=== PATIENT | female | born 1945 | race Caucasian/White ===

== ENCOUNTER 2016-06-12 08:46 | Outpatient (CLI) | payer MEDICARE, OTHER | END 2016-06-12 08:47 | disposition home or self-care (01) | DX: Z12.31 Encounter for screening mammogram for malignant neoplasm of breast (principal); Z80.3 Family history of malignant neoplasm of breast ==

== ENCOUNTER 2016-06-12 08:49 | Outpatient (CLI) | payer MEDICARE, OTHER | END 2016-06-12 08:50 | disposition home or self-care (01) | DX: Z13.820 Encounter for screening for osteoporosis (principal); Z78.0 Asymptomatic menopausal state; M81.0 Age-related osteoporosis without current pathological fracture ==

== ENCOUNTER 2016-09-19 12:57 | Emergency (ER) | payer MEDICARE, OTHER ==
[2016-09-19] MEDS ORDERED: MECLIZINE 12.5 MG TABLET PO ONE (13:18)
[2016-09-19] MEDS ORDERED: ONDANSETRON ODT 4 MG TABLET ONE (13:18)
--- NOTE | 2016-09-19 13:19 | ED Physician Documentation ---
History of Present Illness - Stated complaint Stated Complaint: DIZZINESS,L EAR PX,DIFF HEARING - Chief complaint Chief Complaint: General - History obtained from History obtained from: Patient, Family - History of Present Illness Timing: Today Pain level max: 2 Pain level now: 1 Improved by: remaining still Worsened by: moving - Additonal information Additional information: Patient is a 71-year-old female who presents to the emergency department with left-sided ear "clogging" for the past several months. Today she feels like the room is spinning around her and she is having nausea. Denies any focal neurological deficits. Denies any headache. Symptoms are better with rest. Worse with movement. Review of Systems Ten Systems: 10 systems reviewed and negative Constitutional: denies: Fever, Chills Ears: reports: Ear pain Nose: denies: Rhinorrhea / runny nose, Congestion Throat: denies: Sore throat Respiratory: denies: Cough GI: reports: Nausea. 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 - Present Medications Home Medications: Ambulatory Orders Medication Instructions Recorded Confirmed Hydrochlorothiazide 12.5 mg PO DAILY 11/28/12 05/07/14 Losartan [Cozaar] 25 mg PO DAILY 11/28/12 05/07/14 Omeprazole [PriLOSEC] 20 mg PO DAILY 11/28/12 05/07/14 Oxaprozin [Daypro] 800 mg PO DAILY 11/28/12 05/07/14 Aspirin/Calcium Carbonate/Mag 81 mg PO DAILY 01/19/14 05/07/14 [Aspirin Buffered 325 mg Tab] Fenofibrate 160 mg PO DAILY 01/19/14 05/07/14 Lidocaine Patch 5% [Lidoderm Patch] 1 each TOP DAILY PRN #10 patch 04/16/15 oxyCODONE [Roxicodone] 5 mg PO Q6H #20 tablet 04/16/15 Meclizine [Antivert] 12.5 - 25 mg PO Q6H PRN #20 tablet 09/19/16 Ondansetron Odt [Zofran] 4 mg TL Q6H PRN #10 tablet 09/19/16 - Allergies Allergies/Adverse Reactions: Allergies Allergy/AdvReac Type Severity Reaction Status Date / Time No Known Drug Allergies Allergy Verified 09/19/16 13:12 - Social History Does the pt smoke?: No Smoking Status: Former smoker Does the pt drink ETOH?: Yes Does the pt have substance abuse?: No PD ED PE NORMAL - Vitals Vital signs reviewed: Yes - General General: Alert and oriented X 3, No acute distress, Well developed/nourished - HEENT HEENT: Atraumatic, PERRL, EOMI, Ears normal, Moist mucous membranes, Pharynx benign - Neck Neck: Supple, no meningeal sign, No bony TTP - Cardiac Cardiac: RRR, No murmur - Respiratory Respiratory: Clear bilaterally - Abdomen Abdomen: Normal bowel sounds, Soft, Non tender, Non distended - Derm Derm: Warm and dry, No rash - Extremities Extremities: No deformity - Neuro Neuro: Alert and oriented X 3, patient relations coordinator 2-12 intact, No motor deficit, No sensory deficit, Normal speech, Other (+hallpike to the L. NIHSS 0) GCS Score: 15 - Psych Psych: Normal mood, Normal affect Results - Vitals Vitals: Vital Signs - 24 hr 09/19/16 09/19/16 13:00 14:34 Temperature 36.6 C 36.8 C Heart Rate 79 69 Respiratory 16 17 Rate Blood Pressure 187/68 H 154/69 H O2 Saturation 98 98 Oxygen O2 Source Room air PD MEDICAL DECISION MAKING - ED course Complexity details: reviewed results, re-evaluated patient, considered differential, d/w patient, d/w family ED course: Patient is a 71-year-old female who presents to the emergency department with vertigo. Appears to be BPPV. Positive Hallpike to the left. She was given Zofran and meclizine. Half somersault maneuver was then performed and this nearly resolved her vertigo. She is ambulating well and would like to go home at this time. No evidence of stroke. No evidence of otitis media. Patient and family counseled regarding signs and symptoms for which I believe and urgent re- evaluation would be necessary. Patient with good understanding of and agreement to plan and is comfortable going home at this time This document was made in part using voice recognition software. While efforts are made to proofread this document, sound alike and grammatical errors may occur. Departure - Departure Disposition: 01 Home, Self Care Clinical Impression: Vertigo Condition: Good Instructions: ED Vertigo Unspecified Follow-Up: EBER GREGORIO [Primary Care Provider] - Within 1 week Prescriptions: Meclizine [Antivert] 12.5 - 25 mg PO Q6H PRN #20 tablet PRN Reason: dizziness Ondansetron Odt [Zofran] 4 mg TL Q6H PRN #10 tablet PRN Reason: Nausea / Vomiting Comments: Return if you worsen. You can also try the half somersault maneuver at home to see if this helps you. This should improve over the next 2-3 days. Your blood pressure was elevated today on check in to the emergency department. This does not mean that you have hypertension, it is a common phenomenon to check into the emergency department and have elevated blood pressure. I recommend that you see your primary care physician within the week to have it rechecked when you're feeling better. Discharge Date/Time: 09/19/16 14:36
[2016-09-19] MEDS: ONDANSETRON ODT 4 MG TABLET TL STA (13:20)
[2016-09-19] MEDS: MECLIZINE 12.5 MG TABLET PO STA (13:20)
[2016-09-19 14:36] VITALS: BP 154/69
== END 2016-09-19 14:36 | disposition home or self-care (01) ==
LOC: ED 12:57
DX: R42 Dizziness and giddiness (principal); I10 Essential (primary) hypertension; E78.00 Pure hypercholesterolemia, unspecified; K21.9 Gastro-esophageal reflux disease without esophagitis; Z87.11 Personal history of peptic ulcer disease; M19.90 Unspecified osteoarthritis, unspecified site; Z79.82 Long term (current) use of aspirin; Z87.891 Personal history of nicotine dependence
CPT/HCPCS: 99283; 99284

== ENCOUNTER 2017-05-06 13:34 | Outpatient (CLI) | payer MEDICARE, OTHER | END 2017-05-06 13:35 | disposition home or self-care (01) | LOC: SC 13:34 | PROVIDERS: ATTEND Nurse Practitioner Family | DX: G47.33 Obstructive sleep apnea (adult) (pediatric) (principal) | CPT/HCPCS: 99213; G0463; 99212 ==

== ENCOUNTER 2017-06-14 08:33 | Outpatient (CLI) | payer MEDICARE, OTHER ==
--- NOTE | 2017-06-16 09:50 | Mammography Report ---
DATE OF SERVICE: 06/14/2017 DIGITAL SCREENING MAMMOGRAM: 06/14/2017 CLINICAL INDICATION: A 72-year-old with family history of breast cancer, for screening. COMPARISON: 06/2016, 04/2014, 04/2013, 03/2012, 03/2011, 02/2010. TECHNIQUE: Routine CC and MLO projections were obtained of the breasts. FINDINGS: The breasts again demonstrate scattered fibroglandular densities bilaterally. Coarse and punctate, typically benign calcifications are present. No suspicious masses, clustered microcalcifications, or regions of architectural distortion are identified. IMPRESSION: BENIGN FINDINGS. RECOMMENDATION: ROUTINE ANNUAL SCREENING UNLESS OTHERWISE CLINICALLY INDICATED. BIRADS CATEGORY 2-BENIGN FINDINGS. STANDARD QUALIFYING STATEMENTS: 1. This examination was reviewed with the aid of Computer-Aided Detection (CAD). 2. A negative or benign imaging report should not delay biopsy if clinically suspicious findings are present. Consider surgical consultation if warranted. More than 5% of cancers are not identified by imaging. 3. Dense breasts may obscure an underlying neoplasm. TD: 06/16/2017 10:49
== END 2017-06-14 08:34 | disposition home or self-care (01) ==
LOC: DI 08:33
PROVIDERS: ATTEND Specialist
DX: Z12.31 Encounter for screening mammogram for malignant neoplasm of breast (principal); Z80.3 Family history of malignant neoplasm of breast
CPT/HCPCS: 77067

== ENCOUNTER 2017-09-13 07:21 | Outpatient (CLI) | payer MEDICARE, OTHER ==
--- NOTE | 2017-09-13 11:40 | Ultrasound Report ---
COMPLETE ABDOMINAL ULTRASOUND: 09/13/2017 CLINICAL INDICATION: Increasing reflux, increasing pain. TECHNIQUE: Real-time scanning was performed with career representative static images obtained. FINDINGS: The liver measures 14.5 cm. Hepatic echogenicity appears increased, compatible with fatty infiltration. No focal parenchymal lesion or intrahepatic biliary dilatation is present. The common bile duct measures 4 mm. The gallbladder is normal, as is the visualized pancreas. The spleen measures 10.3 cm, and demonstrates normal echotexture. The kidneys are normal, with the right measuring 11.4 cm and the left measuring 11.7 cm. The abdominal aorta is normal in caliber throughout. The inferior vena cava is unremarkable. No free fluid is present. IMPRESSION: ECHOGENIC LIVER, LIKELY REPRESENTING FATTY INFILTRATION. OTHERWISE, NORMAL ABDOMINAL ULTRASOUND. TD: 09/13/2017 11:39
== END 2017-09-13 07:22 | disposition home or self-care (01) ==
LOC: DI 07:21
PROVIDERS: ATTEND Registered Nurse
DX: K21.9 Gastro-esophageal reflux disease without esophagitis (principal); R10.12 Left upper quadrant pain
CPT/HCPCS: 76700

== ENCOUNTER 2017-09-18 08:11 | Emergency (ER) | payer MEDICARE, OTHER ==
[2017-09-18 08:18] VITALS: BP 172/77
--- NOTE | 2017-09-18 08:37 | ED Physician Documentation ---
PD HPI UPPER EXT INJURY - Stated complaint Stated Complaint: L WRIST INJ/GLF - Chief complaint Chief Complaint: Trauma Ext - History obtained from History obtained from: Patient, Family - History of Present Illness Location: Left, Wrist Type of injury: Fall (she was on chair as stepstool and fell, landing onto left wrist. Still hurts with ROM. Denies other injury.) Where injury occurred: Home Timing - onset: How many days ago (2) Timing - duration: Days (2) Timing - details: Abrupt onset, Still present Improved by: Rest Worsened by: Moving, Palpating Associated symptoms: Swelling. No: Weakness, Numbness Contributing factors: No: Anticoagulated, Prior ortho surgery Similar symptoms before: Has not had sx before Recently seen: Not recently seen Review of Systems Cardiac: denies: Chest pain / pressure GI: denies: Abdominal Pain Skin: denies: Abrasion (s), Laceration (s) Neurologic: denies: Focal weakness, Numbness, Confused, Altered mental status, Headache, Head injury PD PAST MEDICAL HISTORY - Past Medical History Cardiovascular: Hypertension, High cholesterol Respiratory: None Neuro: None Endocrine/Autoimmune: None GI: GERD, Ulcers : None HEENT: None Psych: None Musculoskeletal: Osteoarthritis, Osteoporosis, Chronic back pain Derm: None - Past Surgical History General: EGD, Appendectomy, 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 - Present Medications Home Medications: Ambulatory Orders Medication Instructions Recorded Confirmed Hydrochlorothiazide 12.5 mg PO DAILY 11/28/12 09/18/17 Losartan [Cozaar] 25 mg PO DAILY 11/28/12 09/18/17 Omeprazole [PriLOSEC] 20 mg PO DAILY 11/28/12 05/07/14 Oxaprozin [Daypro] 800 mg PO DAILY 11/28/12 05/07/14 Aspirin/Calcium Carbonate/Mag 81 mg PO DAILY 01/19/14 09/18/17 [Aspirin Buffered 325 mg Tab] Fenofibrate 160 mg PO DAILY 01/19/14 09/18/17 Lidocaine Patch 5% [Lidoderm Patch] 1 each TOP DAILY PRN #10 patch 04/16/15 oxyCODONE [Roxicodone] 5 mg PO Q6H #20 tablet 04/16/15 Meclizine [Antivert] 12.5 - 25 mg PO Q6H PRN #20 tablet 09/19/16 Ondansetron Odt [Zofran] 4 mg TL Q6H PRN #10 tablet 09/19/16 - Allergies Allergies/Adverse Reactions: Allergies Allergy/AdvReac Type Severity Reaction Status Date / Time No Known Drug Allergies Allergy Verified 09/19/16 13:12 - Social History Does the pt smoke?: No Smoking Status: Never smoker Does the pt drink ETOH?: Yes Does the pt have substance abuse?: No - Immunizations Immunizations are current?: Yes - POLST Patient has POLST: No PD ED PE NORMAL - Vitals Vital signs reviewed: Yes - General General: Alert and oriented X 3, No acute distress, Well developed/nourished - Derm Derm: Normal color, Warm and dry - Extremities Extremities: Other (left wrist tender dorsal aspect generally. Not tender in navicular area. Mild swelling. No deformity. Good pulses and color. ) - Neuro Neuro: No motor deficit, No sensory deficit Results - Vitals Vitals: Oxygen O2 Source Room air PD MEDICAL DECISION MAKING - ED course Complexity details: reviewed results, considered differential, d/w patient Departure - Departure Disposition: 01 Home, Self Care Clinical Impression: Accidental fall from chair Qualifiers: Encounter type: initial encounter Qualified Code(s): W07.XXXA - Fall from chair , initial encounter Left wrist sprain Qualifiers: Encounter type: initial encounter Qualified Code(s): S63.502A - Unspecified sprain of left wrist, initial encounter Condition: Stable Record reviewed to determine appropriate education?: Yes Instructions: ED Sprain Wrist Follow-Up: Hafsa Huang ARNP [Primary Care Provider] - [facility] [Provider Group] Comments: Continue usual medications. Use a wrist splint periodically through the day for comfort with activity. Consider sleeping with it at night as well. Have it off during the day sometimes in order to have good range of motion in not get stiff wrist. I do not see anything fractured on x-ray. Use Tylenol if needed for pains. Recheck if not better in the next week or so. Discharge Date/Time: 09/18/17 09:03
--- NOTE | 2017-09-18 08:59 | XRAY Preliminary Report ---
Exam: XR WRIST 3 VIEW LT IMPRESSION: No acute osseous abnormality with degenerative changes as above. [facility] SITE ID: [id number]
--- NOTE | 2017-09-18 09:05 | XRAY Report ---
EXAM: LEFT WRIST RADIOGRAPHY EXAM DATE: 09/18/2017 08:39 AM. CLINICAL HISTORY: Fall. COMPARISON: Right wrist radiographs 08/16/2010. TECHNIQUE: 3 views. FINDINGS: Bones: No acute displaced fracture. No suspicious focal osseous lesion. There is diffuse osseous raj neralization. Joints: No subluxation/dislocation. Osteophytic spurring present at the distal radial ulnar joint. At least moderate degenerative change is present at the first CMC joint. Soft Tissues: Unremarkable. IMPRESSION: No acute osseous abnormality with degenerative changes as above. [facility] Referring Provider Line: [phone] SITE ID: [id number]
== END 2017-09-18 09:03 | disposition home or self-care (01) ==
LOC: ED 08:11
DX: S63.502A Unspecified sprain of left wrist, initial encounter (principal); W07.XXXA Fall from chair, initial encounter; I10 Essential (primary) hypertension; E78.00 Pure hypercholesterolemia, unspecified; Z79.82 Long term (current) use of aspirin
CPT/HCPCS: 99282; 99283

== ENCOUNTER 2018-07-19 08:25 | Outpatient (CLI) | payer MEDICARE, OTHER ==
--- NOTE | 2018-07-19 14:36 | Mammography Report ---
Reason: ENCOUNTER FOR SCREENING MAMMOGRAM FOR MALIGNANT NE Procedure Date: 07/19/2018 Accession Number: [id number] / [id number] Procedure: TENZIN - Screening Mammo w/Ta CPT Code: FULL RESULT: EXAM: Screening Mammo w/Ta DATE: 07/19/2018 9:08 AM CLINICAL HISTORY: Routine screening TECHNIQUE: Bilateral CC and MLO views were obtained. COMPARISON: 06/14/2017, 06/12/2016 06/25/2015 and 04/30/2014 FINDINGS: There are scattered fibroglandular densities. There has been no significant interval change. No suspicious masses, clustered microcalcifications, or regions of architectural distortion are identified. IMPRESSION: Benign findings RECOMMENDATION: Routine annual screening unless otherwise clinically indicated. BIRADS CATEGORY 2: Benign findings STANDARD QUALIFYING STATEMENTS: 1. This examination was not reviewed with the aid of Computer-Aided Detection (CAD). 2. A negative or benign imaging report should not delay biopsy if clinically suspicious findings are present. Consider surgical consultation if warrented. More than 5% of cancers are not identified by imaging. 3. Dense breasts may obscure an underlying neoplasm. 4. This examination was reviewed with the aid of 3D breast imaging (tomosynthesis).
== END 2018-07-19 08:26 | disposition home or self-care (01) ==
LOC: DI 08:25
PROVIDERS: ATTEND Registered Nurse
DX: Z12.31 Encounter for screening mammogram for malignant neoplasm of breast (principal)
CPT/HCPCS: 77063; 77067

== ENCOUNTER 2018-07-19 08:26 | Outpatient (CLI) | payer MEDICARE, OTHER ==
--- NOTE | 2018-07-19 11:30 | DEXA Report ---
Reason: AGE RELATED OSTEOPOROSIS WITHOUT CURRETN PATHOLOGI Procedure Date: 07/19/2018 Accession Number: [id number] / [id number] Procedure: DEX - Dexa Spine and/or Hip CPT Code: FULL RESULT: EXAM: Dexa Spine and/or Hip DATE: 07/19/2018 9:42 AM CLINICAL HISTORY: AGE RELATED OSTEOPOROSIS WITHOUT CURRENT PATHOLOGY . HISTORY OF BONIVA AND FOSAMAX USE. TECHNIQUE: Dual energy x-ray absorptiometry (DXA) was performed on a Pointworthy System. Regions measured are the AP Spine, femoral neck, and if needed forearm. COMPARISON: 06/12/2016 In accordance with the International Society for Clinical Densitometry (ISCD) guidelines, data from previous exams may be reanalyzed using current recommendations and techniques. This is done to allow a more accurate basis for comparison with the current study. FINDINGS: The data for the lumbar spine is as follows: BMD (g/cm/cm) T-SCORE Z-SCORE REGION L1 0.834 -2.5 -1.9 L2 0.898 -2.5 -2.0 L3 0.950 -2.1 -1.5 L4 0.981 -1.8 -1.3 TOTAL 0.918 -2.2 -1.6 NOTE: All evaluable vertebrae are used for classification The data for the hip is as follows: BMD (g/cm/cm) T-SCORE Z-SCORE REGION Neck 0.763 -2.0 -0.9 TOTAL 0.773 -1.9 -1.1 NOTE: The femoral neck or total proximal femur, whichever is lowest, is used for classification. DXA RESULTS SUMMARY: Spine SCAN DATE [age]GE BMD CHANGE VS CHANGE VS PREVIOUS PREVIOUS % [birth year]18[birth year]2019 [age] 0[age]944 0.144 18 06[age]12/2016 [age] 0[age]8 * Denotes significant change at the 95% confidence level. Denotes dissimilar scan types or analysis methods. DXA RESULTS SUMMARY: Hip SCAN DATE [age]GE BMD CHANGE VS CHANGE VS PREVIOUS PREVIOUS % [birth year]19[birth year]2018 [age] 0.773 -0.027 -3.4 [birth year]12[birth year]2016 [age] 0.8 * Denotes significant change at the 95% confidence level. Denotes dissimilar scan types or analysis methods. IMPRESSION: THE WHO CLASSIFICATION BASED ON THE INTERNATIONAL REFERENCE STANDARD IS OSTEOPENIA. THE FRACTURE RISK IS INCREASED. There has been a statistically significant 18% increase in bone mineral density L2-L4 since the prior examination.. RECOMMENDATION: Patients with diagnosis of osteoporosis or osteopenia should have regular bone mineral density assessment. For those eligible for Medicare, routine testing is allowed once every 2 years. Testing frequency can be increased for patients who have rapidly progressing disease or for those who are receiving medical therapy to restore bone mass. COMMENT: World Health Organization (WHO) definitions for osteoporosis and osteopenia: NORMAL BMD: T-score at -1.0 or higher, fracture risk is low OSTEOPENIA BMD: T-score between -1.0 and -2.5, fracture risk is increased. OSTEOPOROSIS BMD: T-score at -2.5 or lower, fracture risk is high. National Osteoporosis Foundation recommends: 1. Obtain adequate dietary calcium (at least 1200 mg per day) and vitamin D (400-800 international units per day). 2. Participate, as appropriate, in regular weightbearing and muscle-strengthening exercise. 3. Avoid tobacco use and reduce alcohol and caffeine intake. 4. For more detailed information see the website at www.NOF.org.
== END 2018-07-19 08:27 | disposition home or self-care (01) ==
LOC: DI 08:26
PROVIDERS: ATTEND Registered Nurse
DX: M85.89 Other specified disorders of bone density and structure, multiple sites (principal); Z78.0 Asymptomatic menopausal state
CPT/HCPCS: 77080

== ENCOUNTER 2018-08-26 14:37 | Outpatient (CLI) | payer MEDICARE, OTHER ==
--- NOTE | 2018-08-26 15:52 | XRAY Report ---
Reason: PAIN IN RIGHT KNEE,LOW BACK PAIN Procedure Date: 08/26/2018 Accession Number: [id number] / [id number] Procedure: XR - Lumbar Spine 2 View CPT Code: FULL RESULT: EXAM: LUMBOSACRAL SPINE RADIOGRAPHY EXAM DATE: 08/26/2018 02:42 PM. CLINICAL HISTORY: Pain in right knee,low back pain. COMPARISONS: None. TECHNIQUE: 3 views. FINDINGS: Alignment: 7 mm of grade 1 anterolisthesis of L4 on L5. 10 mm of grade 1-2 anterolisthesis of L5 on S1. Bones: Five lwd-rwy-cjelvpb lumbar vertebral bodies are present. No fractures or bone lesions. Disks: Mild disk space narrowing at L5-S1. Facets: Mild degenerative facet arthrosis at L4-L5 and L5-S1. Sacroiliac Joints: Unremarkable. Soft Tissues: Normal. The visualized bowel gas pattern is normal. IMPRESSION: Degenerative appearing anterolisthesis at L4-L5 and L5-S1 as described. No appreciable acute fracture. [facility]
--- NOTE | 2018-08-26 15:53 | XRAY Report ---
Reason: PAIN IN RIGHT KNEE,LOW BACK PAIN Procedure Date: 08/26/2018 Accession Number: [id number] / [id number] Procedure: XR - Knee 3 View RT CPT Code: FULL RESULT: EXAM: RIGHT KNEE RADIOGRAPHY EXAM DATE: 08/26/2018 02:42 PM. CLINICAL HISTORY: Pain in right knee, low back pain. COMPARISON: None. TECHNIQUE: 3 views. FINDINGS: Bones: Normal. No fractures or bone lesions. Joints: Minimal medial osteophyte medial femoral condyle. Minimal osteophyte formation of the lateral patella. No significant effusion appreciated. Soft Tissues: Normal. No soft tissue swelling. IMPRESSION: Normal knee radiography for age. [facility]
== END 2018-08-26 14:38 | disposition home or self-care (01) ==
LOC: DI 14:37
PROVIDERS: ATTEND Nurse Practitioner Family
DX: M25.561 Pain in right knee (principal); M51.37 Other intervertebral disc degeneration, lumbosacral region; M47.9 Spondylosis, unspecified; M43.16 Spondylolisthesis, lumbar region; M43.17 Spondylolisthesis, lumbosacral region
CPT/HCPCS: 72100

== ENCOUNTER 2018-12-05 10:09 | Outpatient (CLI) | payer MEDICARE, OTHER ==
--- NOTE | 2018-12-05 13:34 | XRAY Report ---
Reason: ENCOUNTER FOR OTHER PREPROCEDURAL EXAMINATION Procedure Date: 12/05/2018 Accession Number: [id number] / [id number] Procedure: XR - Chest 2 View X-Ray CPT Code: 82777 FULL RESULT: EXAM: CHEST RADIOGRAPHY EXAM DATE: 12/05/2018 10:20 AM. CLINICAL HISTORY: Preop screening ENCOUNTER FOR OTHER PREPROCEDURAL EXAMINATION. COMPARISON: 09/12/2014 9:04 AM. TECHNIQUE: 2 views. FINDINGS: Lungs/Pleura: No focal opacities evident. No pleural effusion. No pneumothorax. Normal volumes. Mediastinum: Heart and mediastinal contours are unremarkable. Other: None. IMPRESSION: No active cardiopulmonary disease [facility]
== END 2018-12-05 10:10 | disposition home or self-care (01) ==
LOC: DI 10:09
PROVIDERS: ATTEND Registered Nurse
DX: Z01.818 Encounter for other preprocedural examination (principal); G47.33 Obstructive sleep apnea (adult) (pediatric); M48.062 Spinal stenosis, lumbar region with neurogenic claudication
CPT/HCPCS: 71046

== ENCOUNTER 2019-01-26 08:22 | Outpatient (CLI) | payer MEDICARE, OTHER ==
[2019-01-26 08:44] LABS: CALCIUM 9.4 mg/dL (8.5-10.3); CREATININE 0.9 mg/dL (0.4-1.0)
[2019-01-26 08:48] LABS: MEAN CORPUSCULAR HEMOGLOBIN 32.9 pg (27.0-31.0); MEAN CORPUSCULAR HGB CONC 33.9 g/dL (32.0-36.0); MEAN CORPUSCULAR VOLUME 96.9 fL (81.0-99.0); MEAN PLATELET VOLUME 9.5 fL (7.9-10.8); RED BLOOD COUNT 4.26 10^6/uL (4.20-5.40); RED CELL DISTRIBUTION WIDTH 12.2 % (12.0-15.0); WHITE BLOOD COUNT 3.6 x10^3/uL (4.8-10.8)
== END 2019-01-26 08:23 | disposition home or self-care (01) ==
LOC: LAB 08:22
PROVIDERS: ATTEND Orthopaedic Surgery Orthopaedic Surgery of the Spine
DX: Z01.818 Encounter for other preprocedural examination (principal)
CPT/HCPCS: 36415; 80048; 85027

== ENCOUNTER 2019-10-18 12:21 | Outpatient (CLI) | payer MEDICARE, OTHER ==
--- NOTE | 2019-10-18 10:54 | SLEEP CARE CONSULTATION ---
Information from patient questionnaire entered by Bessy Almodovar. I have reviewed and concur with the information entered by Bessy Almodovar. This document represents the service I personally performed and the decisions made by me, Madison Fish, RN, MSN, SHUTTLE FIXER. History of Present Illness Service Date and Time: 10/18/2019 1030 Previous diagnosis: Mild, Obstructive Sleep Apnea-Hypopnea Syndrome AHI: 11.9 Reason for follow up: annual (Last seen 2018) Equipment type: [facility] Mask style: Nasal pillows Backup mask available: Yes (old mask ) Last cushion change: last week / changes every 2 weeks CPAP Compliance Data - Data Reviewed with Patient Average duration of nightly device use: 9.95 Compliance rate %: 99.4 (180 days) Current pressure setting (cmH2O): 10-15 Humidity settin Heated hose settin Average residual AHI: 1.4 Average large leak: 1 min 14 sec Subjective Patient concerns: denies: aerophagia, mask discomfort, air blowing in eyes, mask leak noise, condensation in mask/hose, nasal congestion, dry mouth, nose, throat, epistaxis, other (no other concerns ) Observed to snore while using device: No Current pressure setting perceived as: comfortable On therapy, patient: reports: sleeping better, awakening more refreshed, being more awake and alert during the day, more rested overall. denies: drowsiness while driving Initial [place] Sleepiness Scale score: 17 Physical Exam Height: 5 ft 3 in Weight: 220 lb (trying to lose) Body Mass Index: 38.9 BMI Classification: Obese Impression and Plan 1. Obstructive Sleep Apnea-Hypopnea Syndrome, mild, with good treatment compliance and goo apnea control. On CPAP therapy, the patient has better sleep quality and is more rested overall. She is very pleased with her benefit from CPAP treatment. I inquired about the extra time spent using CPAP and she states she puts on CPAP while resting in bed watchng TV to relax an hour before she sleeps and feels she is getting about 8.5 hours of sleep a night. I discussed that most people require 7-9 hours of sleep for optimal mental and physical health and if she requires more, she needs to follow up with her PCP for further evaluation. She is trying to lose weight but unable to achieve. Thus I reviewed some weight loss principles. Currently patients BMI is 38.9 obesity class . Obesity increases the risk of apnea, CPAP pressure requirements and overall health risks especially cardiovascular and diabetes. Weight loss can be done with reducing portion size, reducing refined foods and balancing content with vegetables, fruit and protein. In addition tracking food intake will allow awareness of how to modify diet to achieve weight loss goals. Also eating more slowly will allow more awareness of food intake and enjoyment of food while assisting patient to modify intake at each meal. A diet consultation can be helpful in achieving optimal weight loss goals. Patient encouraged to discuss their weight loss goals with their PCP and consider a referral to a county bailiff. The patient's CPAP pressure range should accommodate some weight loss. She is comfortable with current pressure and will call me when she starts losing weight to adjust further. Symptoms to report for additional pressure adjustment discussed. Patient's apnea severity and rationale for treatment to reduce apnea, improve sleep quality and reduce cardiovascular and cerebrovascular events was reviewed. I also reviewed the benefit of consistent device use of CPAP for individuals with hypertension, cardiac disease, cerebrovascular disease, arrhythmia, diabetes. * Continue auto CPAP pressure at 10-15 cmH2O * Notify me if snoring with mask or feeling that the pressure is too much or too little * Attempt to lose weight * Consider diet consultation and discuss with PCP. * Call this office if any problems using CPAP * Return for follow up in 1 year , or sooner if concerns arise Visit Type: Telehealth Phone Patient Location: Home Location of Provider: Home Patient agrees and consents to this telehealth visit type: Yes Patient agrees to have their insurance billed: Yes Time Spent with Patient (minutes): 10 Provider Statement: I spent 100% of the Telehealth Phone Call with the patient with greater than 50% spent counseling the patient and coordination of care.
== END 2019-10-18 12:22 | disposition home or self-care (01) ==
LOC: SC 12:21
PROVIDERS: ATTEND Nurse Practitioner Family
DX: G47.33 Obstructive sleep apnea (adult) (pediatric) (principal); E66.9 Obesity, unspecified; Z68.38 Body mass index [BMI] 38.0-38.9, adult

== ENCOUNTER 2020-02-01 11:09 | Day surgery (SDC) | payer MEDICARE, OTHER ==
[2020-02-01] MEDS ORDERED: LACTATED RINGERS 1,000 ML IV ONE ×2 (11:13→14:18)
[2020-02-01] MEDS ORDERED: fentaNYL 250 MCG/5 ML VIAL IVP ONE (13:38)
[2020-02-01] MEDS ORDERED: MIDAZOLAM 2 MG/2 ML VIAL IVP ONE (13:38)
[2020-02-01 14:34] VITALS: BP 131/75
== END 2020-02-01 11:10 | disposition home or self-care (01) ==
LOC: SDS 11:09
PROVIDERS: ATTEND Surgery
PROC: 0DBK8ZZ Excision of Ascending Colon, Via Natural or Artificial Opening Endoscopic (ICD-10-PCS; principal; 2020-02-01 12:30)
DX: Z12.11 Encounter for screening for malignant neoplasm of colon (principal); D12.2 Benign neoplasm of ascending colon; K64.8 Other hemorrhoids; K57.30 Diverticulosis of large intestine without perforation or abscess without bleeding; G47.30 Sleep apnea, unspecified; Z87.891 Personal history of nicotine dependence
CPT/HCPCS: 45380; J3010; J7120

== ENCOUNTER 2020-06-29 08:41 | Outpatient (CLI) | payer MEDICARE, OTHER ==
[2020-06-29] MEDS ORDERED: IOVERSOL 320 100 ML VIAL IVP ONE ×2 (08:59→10:42)
[2020-06-29] MEDS ORDERED: IOVERSOL 320 50 ML VIAL ONE (08:59)
[2020-06-29] MEDS ORDERED: IOVERSOL 320 50 ML VIAL PO ONE (10:43)
--- NOTE | 2020-06-29 18:44 | CT Report ---
PROCEDURE: Abdomen/Pelvis W INDICATIONS: RLQ PAIN CONTRAST: IV CONTRAST: Optiray 320 ml: 100 PO CONTRAST: Optiray 320 ml50 TECHNIQUE: After the administration of nonionic contrast, 5 mm thick sections acquired from the diaphragms to th e symphysis. Oral contrast was also given. 5 mm thick coronal and sagittal reformats were acquired. For radiation dose reduction, the following was used: automated exposure control, adjustment of mA and/or kV according to patient size. COMPARISON: None. FINDINGS: Image quality: Excellent. ABDOMEN: Lung bases: Mild basilar atelectasis without focal consolidation, pneumothorax, or pleural effusion. Subcentimeter cystic lesion within the posterior aspect of the right lower lobe may represent sequela of remote infection or trauma. Solid organs: Liver and spleen are normal in size and enhancement. Gallbladder is unremarkable Scott iary system is non dilated. Pancreas enhances normally. No adrenal nodules. Kidneys demonstrate no rmal size and enhancement, without hydronephrosis. Peritoneum and bowel: Stomach is unremarkable. There is a lipoma within the second third portions of the duodenum. Small bowel is unremarkable without evidence of obstruction. Wall thickening or strandi ng inflammation. The appendix is not definitely identified., Possibly surgically absent. No evidence of appendicitis. There are a few diverticula. No evidence of diverticulitis. No ascites or pneumoperi toneum. Nodes and vessels: No retroperitoneal or mesenteric adenopathy by size criteria. Focal dilation of t he infrarenal abdominal aorta measuring up to 2.0 x 2.1 cm. There is diffuse vascular calcification t hroughout the abdominal and pelvic vasculature. Miscellaneous: No ventral hernias. PELVIS: Genitourinary: Bladder wall thickness is normal. Miscellaneous: No inguinal hernias or adenopathy. Bones: Postsurgical changes of posterior fusion of L4-S1. Grade 1 anterolisthesis of L4 on L5 and L5 on S1. No vertebral body compression fractures. IMPRESSION: No acute intra-abdominal/pelvic abnormality to explain patient's symptoms. Focal dilation of the infrarenal abdominal aorta measuring up to 2.1 cm. Reviewed by: Fili Delacruz DO on 06/29/2020 5:43 PM [facility] Approved by: Fili Delacruz DO on 06/29/2020 5:43 PM [place] Station ID: [id number]
== END 2020-06-29 08:42 | disposition home or self-care (01) ==
LOC: DI 08:41
PROVIDERS: ATTEND Nurse Practitioner Family
DX: R10.31 Right lower quadrant pain (principal); I77.811 Abdominal aortic ectasia
CPT/HCPCS: 74177; Q9967

== ENCOUNTER 2020-07-07 10:26 | Outpatient (CLI) | payer MEDICARE, OTHER ==
--- NOTE | 2020-07-07 11:01 | CT Report ---
PROCEDURE: CHEST WO INDICATIONS: LESION OF LUNG TECHNIQUE: Noncontrast 5 mm thick sections acquired from the pulmonary apices to the posterior costophrenic angl es. 7 mm thick coronal and sagittal MIP reformats were then acquired. For radiation dose reduction, the following was used: automated exposure control, adjustment of mA and/or kV according to patient size. COMPARISON: Correlation is made with the overlapping portions of the abdomen and pelvis CT 06/29/2020 . Prior chest radiograph 01/04/2014 FINDINGS: Image quality: Excellent. Lungs and pleura: Minimal dependent atelectasis is seen on the right. Centrilobular emphysematous luis nges are seen, which are more prominent at the lung apices down at the lung bases. No pleural effusi ons or pneumothorax. Central and peripheral airways are patent and normal in caliber. Mediastinum: Heart size is normal. Mild coronary artery calcification is seen. No pericardial effus ion. No mediastinal adenopathy by size criteria. Thoracic aorta and central pulmonary arteries are normal in size. Atherosclerotic calcification is seen. Esophagus is normal in caliber. No hiatal he rnia. Bones and chest wall: No suspicious bony lesions. Minimal, remote appearing thoracic spine anterior wedge deformities are seen. No acute vertebral body compression fractures. S-shaped scoliotic curvat ure is incidentally noted. Age-appropriate degenerative changes are seen. No axillary or supraclav icular adenopathy by size criteria. The thyroid is small in size and demonstrates no significant non contrast CT abnormality Abdomen: Visualized upper abdominal solid organs and bowel loops appear normal in the absence of con trast. IMPRESSION: No focal pulmonary abnormality can be seen. Centrilobular emphysematous changes are noted. Incidental note is made of: Atherosclerotic calcification, including mild coronary artery calcification S-shaped sclerotic curvature Reviewed by: Gunnar Long MD on 07/07/2020 10:00 AM [facility] Approved by: Gunnar Long MD on 07/07/2020 10:00 AM [facility] Station ID: [id number]
--- NOTE | 2020-07-07 11:43 | Ultrasound Report ---
PROCEDURE: Retroperitoneal Limited INDICATIONS: AAA TECHNIQUE: Real-time scanning was performed of the retroperitoneal organs, with image documentation. COMPARISON: None. FINDINGS: Proximal abdominal aorta measures 30 mm short axis. Mid abdominal aorta measures 23 mm zachary rt axis. Distal abdominal aorta measures 24 mm short axis. Right common iliac artery measures 16 mm s hort axis. Left common iliac artery measures 15 mm short axis in IMPRESSION: 1. Distal abdominal aortic ectasia. 2. Mild dilatation of the bilateral common iliac arteries. Reviewed by: Sebastian Santana MD on 07/07/2020 11:42 AM PST Approved by: Sebastian Santana MD on 07/07/2020 11:42 AM PST Station ID: [id number]
== END 2020-07-07 10:27 | disposition home or self-care (01) ==
LOC: DI 10:26
PROVIDERS: ATTEND Nurse Practitioner Family
DX: I71.4 Abdominal aortic aneurysm, without rupture (principal); R91.8 Other nonspecific abnormal finding of lung field; J43.2 Centrilobular emphysema; I72.3 Aneurysm of iliac artery

== ENCOUNTER 2020-10-11 11:14 | Outpatient (CLI) | payer MEDICARE, OTHER ==
--- NOTE | 2020-10-11 11:46 | SLEEP CARE CONSULTATION ---
Information from patient questionnaire entered by Bessy Almodovar. I have reviewed and concur with the information entered by Bessy Almodovar. This document represents the service I personally performed and the decisions made by , Kay Daley ARNP. History of Present Illness Service Date and Time: 10/11/2020 1114 Previous diagnosis: Mild, Obstructive Sleep Apnea-Hypopnea Syndrome AHI: 11.9 (in 2013) Reason for follow up: annual (last seen 10/2019) Equipment type: CPAP Equipment obtained from: [employer] (getting supplies as needed) Mask style: Nasal pillows Backup mask available: Yes (old mask) Last cushion change: 2 days ago Prior sleep studies: Yes Year and Where: 2013 - [facility] Type of Sleep Study: Polysomnography HPI additional information: NICHOLAS KLINE was diagnosed to have mild, AHI 11.9, obstructive sleep apnea- hypopnea syndrome and returned today for CPAP therapy annual follow-up. CPAP Compliance Data - Data Reviewed with Patient Average duration of nightly device use: 9 hr 18 min Compliance rate %: 98.3 (180 days) Current pressure setting (cmH2O): 10-15 Humidity settin Heated hose settin Average residual AHI: 1.2 Average large leak: 1 min 34 sec Subjective Missed days of use due to: reports: other (power outage) Patient concerns: denies: aerophagia, mask discomfort, air blowing in eyes, mask leak noise, condensation in mask/hose, nasal congestion, dry mouth, nose, throat, epistaxis, other Observed to snore while using device: No Current pressure setting perceived as: comfortable On therapy, patient: reports: sleeping better, awakening more refreshed, being more awake and alert during the day, more rested overall. denies: drowsiness while driving Initial [place] Sleepiness Scale score: 17 (in 2013) Current [place] Sleepiness Scale score: 4 Allergies and Home Medications Home medication list reviewed: Yes (no new meds) Review of Systems Review of systems same as previous: Yes (no changes) Physical Exam Heart Rate: 73 O2 Saturation: 98 Height: 5 ft 3 in Weight: 225 lb Body Mass Index: 39.8 BMI Classification: Obese Impression and Plan 1. Obstructive Sleep Apnea-Hypopnea Syndrome, mild, with excellent treatment compliance and good apnea control. On CPAP therapy, the patient has better sleep quality and is more rested overall. Her machine was last set up in 2013. The patients CPAP is over 5 years old and of reasonable use. Thus, the CPAP will be updated. A DWO prescription will be made. Compliance guidelines for new device and follow up discussed. Patient's apnea severity and rationale for treatment to reduce apnea, improve sleep quality and reduce cardiovascular and cerebrovascular events was reviewed. I also reviewed the benefit of consistent device use of CPAP for hypertension, cardiac disease, cerebrovascular disease, arrhythmia, and diabetes. * Continue auto CPAP pressure at 10-15 cmH2O * Update machine * Notify me if snoring with mask or feeling that the pressure is too much or too little * Attempt to lose weight * Call this office if any problems using CPAP * Return for follow up one month after updating machine, or sooner if concerns arise Counseling Topics: Spare mask, Weight loss health impact Visit Type: In Office Time Spent with Patient (minutes): 15 Provider Statement: I spent 100% of the Face to Face Visit with the patient with greater than 50% spent counseling the patient and coordination of care.
== END 2020-10-11 11:15 | disposition home or self-care (01) ==
LOC: SC 11:14
PROVIDERS: ATTEND Nurse Practitioner Family
DX: G47.33 Obstructive sleep apnea (adult) (pediatric) (principal); E66.9 Obesity, unspecified; Z68.39 Body mass index [BMI] 39.0-39.9, adult
CPT/HCPCS: 99212; G0463

== ENCOUNTER 2021-02-25 13:21 | Outpatient (CLI) | payer MEDICARE, OTHER ==
--- NOTE | 2021-02-25 15:20 | XRAY Report ---
PROCEDURE: Foot 3 View LT INDICATIONS: PAIN AND SWELLING TECHNIQUE: 3 views of the foot were acquired. COMPARISON: None FINDINGS: Bones: Diffuse osteopenia. No acute fractures or dislocations. Very small plantar calcaneal and retr ocalcaneal spurs. No suspicious bony lesions. Mild degenerative changes of the proximal and distal i nterphalangeal joints of the second through fifth toes as well as the interphalangeal joint of the le ft great toe. Soft tissues: No tibiotalar joint effusion. Achilles tendon appears normal. IMPRESSION: Left foot without acute osseous abnormalities. Very small plantar calcaneal and retrocalcaneal enthesophytes/spurs. Mild polyarticular osteoarthrosis of the left foot. Reviewed by: Roland Judd MD on 02/25/2021 3:18 PM PDT Approved by: Roland Judd MD on 02/25/2021 3:18 PM PDT Station ID: [id number]
== END 2021-02-25 13:22 | disposition home or self-care (01) ==
LOC: DI 13:21
PROVIDERS: ATTEND Podiatrist
DX: M77.32 Calcaneal spur, left foot (principal); M19.072 Primary osteoarthritis, left ankle and foot

== ENCOUNTER 2021-06-19 07:35 | Outpatient (CLI) | payer MEDICARE, OTHER ==
--- NOTE | 2021-06-20 10:44 | Mammography Report ---
BILATERAL DIGITAL SCREENING MAMMOGRAM 3D/2D: 06/19/2021 CLINICAL: Routine screening. Comparison is made to exams dated: 11/23/2019 mammogram, 07/19/2018 mammogram, and 06/14/2017 mammogram - [facility]. There are scattered fibroglandular elements in both breasts. No significant masses, calcifications, or other findings are seen in either breast. There has been no significant interval change. IMPRESSION: NEGATIVE There is no mammographic evidence of malignancy. A 1 year screening mammogram is recommended. This exam was interpreted at Station ID: [id number]. NOTE: For mammograms, a report in lay terms will be sent to the patient. Approximately 15% of breast malignancies will not be visualized mammographically. In the management of a palpable breast mass, a negative mammogram must not discourage biopsy of a clinically suspicious lesion. Electronically Signed By: Jaiden Dawn M.D. ar/penrad:06/19/2021 10:55:50 ACR BI-RADS Category 1: Negative 3341F PARENCHYMAL PATTERN: (A) - The breast(s) demonstrate(s) scattered fibroglandular densities. BI-RADS CATEGORY: (1) - 1 RECOMMENDATION: (ANNUAL) - Recommend routine annual screening mammography. [id number] 1 year screening LATERALITY: (B)
== END 2021-06-19 07:36 | disposition home or self-care (01) ==
LOC: DI 07:35
PROVIDERS: ATTEND Registered Nurse
DX: Z12.31 Encounter for screening mammogram for malignant neoplasm of breast (principal)

== ENCOUNTER 2021-06-19 07:38 | Outpatient (CLI) | payer MEDICARE, OTHER ==
[2021-06-19] MEDS ORDERED: IOPAMIDOL-300 50 ML VIAL ONE (07:52)
[2021-06-19] MEDS ORDERED: iohexoL-300 100 ML VIAL ONE (07:52)
--- NOTE | 2021-06-19 10:15 | CT Report ---
PROCEDURE: Abdomen/Pelvis W INDICATIONS: RIGHT SIDED ABD PAIN CONTRAST: IV CONTRAST: Optiray 320 ml: 100 PO CONTRAST: Isovue 300 ml50 TECHNIQUE: After the administration of IV and oral contrast, 5 mm thick sections acquired from the diaphragms to the symphysis. 5 mm thick coronal and sagittal reformats were acquired. For radiation dose reducti on, the following was used: automated exposure control, adjustment of mA and/or kV according to niharika ent size. COMPARISON: None. FINDINGS: Image quality: Excellent. ABDOMEN: Lung bases: Lung bases are clear. Heart size is normal. Solid organs: Liver and spleen are normal in size and enhancement. Gallbladder is within normal núñez its Biliary system is non dilated. Pancreas enhances normally. No adrenal nodules. Kidneys demons trate normal size and enhancement, without hydronephrosis. Peritoneum and bowel: Bowel loops demonstrate normal wall thickness and caliber. No free fluid or a ir. Appendix is not seen. No evidence of appendicitis. Nodes and vessels: No retroperitoneal or mesenteric adenopathy by size criteria. Aorta and inferior vena cava are normal in size. Miscellaneous: No ventral hernias. PELVIS: Genitourinary: Bladder wall thickness is normal. Miscellaneous: No inguinal hernias or adenopathy. Bones: No suspicious bony lesions. Fusion hardware posteriorly at L4-S1. No vertebral body compressi on fractures. IMPRESSION: 1. No acute process. 2. Appendix not seen. No evidence of appendicitis. Reviewed by: Sebastian Santana MD on 06/19/2021 10:13 AM [facility] Approved by: Sebastian Santana MD on 06/19/2021 10:13 AM [facility] Station ID: [id number]
[2021-06-19] MEDS ORDERED: iohexoL-300 100 ML VIAL IVP ONE (10:38)
[2021-06-19] MEDS ORDERED: IOPAMIDOL-300 50 ML VIAL PO ONE (10:38)
== END 2021-06-19 07:39 | disposition home or self-care (01) ==
LOC: DI 07:38
PROVIDERS: ATTEND Registered Nurse
DX: R10.9 Unspecified abdominal pain (principal)
CPT/HCPCS: 74177; Q9967

== ENCOUNTER 2021-09-25 07:34 | Outpatient (CLI) | payer MEDICARE, OTHER ==
--- NOTE | 2021-09-25 12:26 | Ultrasound Report ---
PROCEDURE: Retroperitoneal Limited INDICATIONS: DIALATION OF AORTA TECHNIQUE: Real time scanning was performed of the aorta and iliac arteries, with image documentatio n. COMPARISON: CT abdomen/pelvis 06/19/2021, ultrasound 07/07/2020 FINDINGS: Aorta: Proximal aortic diameter measures 2.8 x 2.9 cm. Mid-aorta measures 2.3 x 2.2 cm. Distal aor tic diameter is 2.0 x 2.2 cm. Iliac arteries: Right common iliac artery measures 1.4 x 1.6 cm. Left common iliac artery measures 1.3 x 1.4 cm. IMPRESSION: 1.Infrarenal abdominal aorta within normal limits in size on the current exam. 2.Mild dilation of the bilateral common iliac arteries. Reviewed by: Jaiden Dawn MD on 09/25/2021 12:24 PM PDT Approved by: Jaiden Dawn MD on 09/25/2021 12:24 PM PDT Station ID: [id number]
== END 2021-09-25 07:35 | disposition home or self-care (01) ==
LOC: DI 07:34
PROVIDERS: ATTEND Registered Nurse
DX: I77.819 Aortic ectasia, unspecified site (principal); I72.3 Aneurysm of iliac artery

== ENCOUNTER 2022-02-03 08:17 | Outpatient (CLI) | payer MEDICARE, OTHER ==
--- NOTE | 2022-02-03 14:31 | DEXA Report ---
PROCEDURE: Dexa Spine and/or Hip INDICATIONS: OSTEOPENIA TECHNIQUE: Dual energy x-ray absorptiometry (DXA) was performed on a [employer]umb[employer] System. Regions measur ed are the AP Spine, femoral neck, and if needed forearm. COMPARISON: 07/19/2018. FINDINGS: Lumbar Spine: Bone Mineral Density 0.909 g/cm/cm,T score -2.2. There is interval 1.3% increase in total lumbar s pine bone mineral density. Left Hip: Bone Mineral Density 0.730 g/cm/cm,T score -2.2. There is interval 5.6% increase in total left hip b one mineral density. Left Femoral Neck: Bone Mineral Density 0.714 g/cm/cm, T score -2.3. (T score greater or equal to -1.0: NORMAL) (T score from -1.1 to -2.4: OSTEOPENIA) (T score less than or equal to -2.5 to: OSTEOPOROSIS) Impression: Osteopenia. Patients with diagnosis of osteoporosis or osteopenia should have regular bone mineral density assess ment. For those eligible for Medicare, routine testing is allowed once every 2 years. Testing frequ ency can be increased for patients who have rapidly progressing disease or for those who are receivin g medical therapy to restore bone mass. Reviewed by: Nirmal Koroma MD on 02/03/2022 2:30 PM PDT Approved by: Nirmal Koroma MD on 02/03/2022 2:30 PM PDT Station ID: [id number]
== END 2022-02-03 08:18 | disposition home or self-care (01) ==
LOC: DI 08:17
PROVIDERS: ATTEND Registered Nurse
DX: M85.89 Other specified disorders of bone density and structure, multiple sites (principal)

== ENCOUNTER 2022-08-24 14:14 | Outpatient (CLI) | payer MEDICARE, OTHER ==
--- NOTE | 2022-08-25 12:45 | Mammography Report ---
BILATERAL DIGITAL SCREENING MAMMOGRAM 3D/2D: 08/24/2022 CLINICAL: Routine screening. Comparison is made to exams dated: 06/19/2021 mammogram, 11/23/2019 mammogram, 07/19/2018 mammogram, an d 06/14/2017 mammogram - [facility]. There are scattered areas of fibroglandular density in both breasts (category b / 25%-50% glandular t issue). No significant masses, calcifications, or other findings are seen in either breast. There has been no significant interval change. IMPRESSION: NEGATIVE There is no mammographic evidence of malignancy. A 1 year screening mammogram is recommended. Based on the Tyrer Cuzick model (a risk assessment model) the patients lifetime risk is 3.1% and her 10 year risk is 0.0%. According to the ACR, ACS, and NCCN guidelines, an annual breast MRI exam chen g with mammogram is recommended if the patients lifetime risk is 20% or greater. This exam was interpreted at Station ID: [id number]. NOTE: For mammograms, a report in lay terms will be sent to the patient. Approximately 15% of breast malignancies will not be visualized mammographically. In the management of a palpable breast mass, a negative mammogram must not discourage biopsy of a clinically suspicious lesion. Electronically Signed By: Bandar lorenzana/desirae:08/24/2022 15:45:33 letter sent: No_Letter ACR BI-RADS Category 1: Negative 3341F PARENCHYMAL PATTERN: (A) - The breast(s) demonstrate(s) scattered fibroglandular densities. BI-RADS CATEGORY: (1) - 1 Mammogram [id number] 1 year screening LATERALITY: (B)
== END 2022-08-24 14:15 | disposition home or self-care (01) ==
LOC: DI 14:14
DX: Z12.31 Encounter for screening mammogram for malignant neoplasm of breast (principal)

== ENCOUNTER 2023-01-25 12:55 | Outpatient (CLI) | payer MEDICARE, OTHER ==
[2023-01-25] MEDS ORDERED: ALBUTEROL 1 PUFF INH STA (16:37)
== END 2023-01-25 12:56 | disposition home or self-care (01) ==
LOC: RT 12:55
PROVIDERS: ATTEND Registered Nurse
DX: J44.9 Chronic obstructive pulmonary disease, unspecified (principal)
CPT/HCPCS: 94060; 94727; 94729

== ENCOUNTER 2023-06-02 08:00 | Outpatient (CLI) | payer MEDICARE, OTHER ==
--- NOTE | 2023-06-02 18:14 | XRAY Report ---
PROCEDURE: Wrist 3 View RT INDICATIONS: RIGHT WRIST PAIN TECHNIQUE: 3 views of the wrist were acquired. COMPARISON: None. FINDINGS: Bones: Degenerative changes of the first carpometacarpal joint with prior resection of the trapezium . No acute fractures or dislocations. No suspicious bony lesions. Soft tissues: No suspicious soft tissue calcifications or masses. IMPRESSION: 1. No acute bony abnormality. 2. Status post resection of the trapezium. 3. Osteoarthritis. Reviewed by: Jaya Vides MD on 06/02/2023 6:12 PM [facility] Approved by: Jaya Vides MD on 06/02/2023 6:12 PM [facility] Station ID: [id number]
--- NOTE | 2023-06-02 18:15 | XRAY Report ---
PROCEDURE: Hand 3+V RT INDICATIONS: RIGHT HAND PAIN TECHNIQUE: 3 views of the hand(s) acquired. COMPARISON: None. FINDINGS: Bones: No fracture or dislocation. Status post resection of the trapezium. Osteoarthritis of the fir st carpometacarpal joint. Soft tissues: No suspicious soft tissue calcifications or masses. IMPRESSION: No acute bony abnormality. Status post resection of the trapezium. Reviewed by: Jaya Vides MD on 06/02/2023 6:13 PM [facility] Approved by: Jaya Vides MD on 06/02/2023 6:13 PM [facility] Station ID: [id number]
== END 2023-06-02 23:59 | disposition home or self-care (01) ==
LOC: DI.S 08:00
PROVIDERS: ATTEND Registered Nurse
DX: M18.11 Unilateral primary osteoarthritis of first carpometacarpal joint, right hand (principal)

== ENCOUNTER 2023-08-06 20:46 | Outpatient (CLI) | payer MEDICARE, OTHER | END 2023-08-06 23:59 | disposition critical access hospital (66) | LOC: EMS 20:46 | DX: M79.652 Pain in left thigh (principal); W01.0XXA Fall on same level from slipping, tripping and stumbling without subsequent striking against object, initial encounter; Y93.01 Activity, walking, marching and hiking; Y92.008 Other place in unspecified non-institutional (private) residence as the place of occurrence of the external cause | CPT/HCPCS: A0425; A0427 ==

== ENCOUNTER 2023-08-20 08:56 | Outpatient (CLI) | payer MEDICARE, OTHER | END 2023-08-20 23:59 | disposition left against medical advice (07) | LOC: EMS 08:56 | DX: Z03.89 Encounter for observation for other suspected diseases and conditions ruled out (principal); W01.0XXA Fall on same level from slipping, tripping and stumbling without subsequent striking against object, initial encounter; Y92.019 Unspecified place in single-family (private) house as the place of occurrence of the external cause ==

== ENCOUNTER 2023-09-02 10:33 | Outpatient (CLI) | payer MEDICARE, OTHER ==
--- NOTE | 2023-09-02 13:58 | XRAY Report ---
PROCEDURE: Femur LT INDICATIONS: LEFT ANKLE FRACTURE TECHNIQUE: 2 views of the femur were acquired. COMPARISON: 08/07/2023, 08/06/2023. FINDINGS: Bones: Status post intramedullary fixation of left femoral comminuted fracture. No evidence for comp lication. Increased bony bridging of the fracture plane and callus formation indicating progression t owards healing. No suspicious bony lesions. Soft tissues: No suspicious soft tissue calcifications or masses. IMPRESSION: Ongoing healing of left femoral shaft fracture status post internal fixation, without hardware compli cation. Reviewed by: Barbara Walton MD, PhD on 09/02/2023 1:56 PM PDT Approved by: Barbara Walton MD, PhD on 09/02/2023 1:56 PM PDT Station ID: [id number]
== END 2023-09-02 23:59 | disposition home or self-care (01) ==
LOC: DI.WOS 10:33
PROVIDERS: ATTEND Orthopaedic Surgery
DX: S72.352D Displaced comminuted fracture of shaft of left femur, subsequent encounter for closed fracture with routine healing (principal)

== ENCOUNTER 2023-10-17 09:26 | Outpatient (CLI) | payer MEDICARE, OTHER ==
--- NOTE | 2023-10-17 15:37 | XRAY Report ---
PROCEDURE: Femur 2+V LT INDICATIONS: FRACTURE OF SHAFT OF LEFT FEMUR TECHNIQUE: 4 views of the femur were acquired. COMPARISON: Femur radiograph on September 28, 2023. FINDINGS: Bones: Intramedullary reji and interlocking screw fixation of mid femoral diaphyseal fracture is inta ct. Similar to slightly increased appearance of periprosthetic lucency along the distal aspect of the intramedullary reji. Slightly increased callus formation with conspicuous fracture plane. Stable alig nment. No suspicious bony lesions. Soft tissues: No suspicious soft tissue calcifications or masses. IMPRESSION: 1.Intramedullary reji and interlocking screw fixation of mid femoral diaphyseal shaft fracture is. Sim ilar to slightly increased appearance of periprosthetic lucency along the distal aspect of the intram edullary reji, concerning for loosening. Attention on follow-up. 2.Slight interval osseous healing. Fracture plane remains conspicuous. Stable alignment. Reviewed by: Wally Bland MD on 10/17/2023 3:36 PM PDT Approved by: Wally Bland MD on 10/17/2023 3:36 PM PDT Station ID: [id number]
== END 2023-10-17 09:27 | disposition home or self-care (01) ==
LOC: DI 09:26
PROVIDERS: ATTEND Orthopaedic Surgery
DX: S72.302D Unspecified fracture of shaft of left femur, subsequent encounter for closed fracture with routine healing (principal)

== ENCOUNTER 2023-11-18 08:00 | Outpatient (CLI) | payer MEDICARE, OTHER ==
--- NOTE | 2023-11-18 14:54 | XRAY Report ---
PROCEDURE: Femur 2+V LT (Weight Bearing) INDICATIONS: UNSPECIFIED FRACTURE OF SHAFT OF LT FEMUR TECHNIQUE: 2 views of the femur were acquired. COMPARISON: 10/17/2023. FINDINGS: Bones: Stable anterograde intramedullary reji within the left femur. Redemonstration of osseous lucen cy at the bone hardware interface of the distal intramedullary reji. This measures approximately 0.5 c m. No hardware fracture. Partially imaged surgical hardware of the lumbosacral spine appear unremarka ble. No acute fractures seen. Degenerative changes of the left sacroiliac and femoral acetabular joints. C ontinued healing of transverse fracture of the mid left femoral shaft. Fracture line remains visible but less conspicuous. Soft tissues: No suspicious soft tissue calcifications or masses. IMPRESSION: Continued interval healing of left mid femoral shaft fracture with decreased fracture line conspicuit y. Stable positioning of anterograde intramedullary reji with no significant change in amount of osseo us lucency at the bone hardware interface. Findings are again suggestive of hardware loosening. No ev idence for hardware failure. Reviewed by: Roland Judd MD on 11/18/2023 2:53 PM PDT Approved by: Roland Judd MD on 11/18/2023 2:53 PM PDT Station ID: [id number]
== END 2023-11-18 08:01 | disposition home or self-care (01) ==
LOC: DI 08:00
PROVIDERS: ATTEND Orthopaedic Surgery
DX: S72.302D Unspecified fracture of shaft of left femur, subsequent encounter for closed fracture with routine healing (principal)

== ENCOUNTER 2023-12-15 06:10 | Day surgery (SDC) | payer MEDICARE, OTHER ==
[~2023-12-15 06:10] MED LIST: DEXAMETHASONE 4 MG/ML VIAL ONE; ONDANSETRON 4 MG/2 ML VIAL ONE; PROPOFOL 200 MG/20 ML VIAL IVP ONE; fentaNYL 100 MCG/2 ML VIAL ONE
[2023-12-15] MEDS ORDERED: ceFAZolin 2 GM VIAL ONE (06:16)
[2023-12-15] MEDS: LACTATED RINGERS 1,000 ML IV ONE ×2 (06:17→09:12)
--- NOTE | 2023-12-15 06:17 | ANESTHESIA ---
Pre-Anesthesia VS, & Labs - Diagnosis Distal Femoral Nail Loosening/Status Post Midshaft Femur Fracture - Procedure Insert distal interlocking screws Height: 5 ft 3 in - Is Patient ?: No Home Medications and Allergies Home Medications: Ambulatory Orders Aspirin [Aspirin EC] 81 mg PO DAILY 12/07/23 Calcium 26/Vit D3/Magnesium 15 [[id number] Complx 167Mg Cp] 1 each PO DAILY 12/07/23 Cholecalciferol [Vitamin D3] 5,000 unit PO DAILY 12/07/23 Ezetimibe [Zetia] 10 mg PO QD 12/07/23 Rosuvastatin Calcium 2.5 mg PO QPM 12/07/23 Sulindac 150 mg PO BIDWM 12/07/23 Telmisartan 80 mg PO DAILY 12/07/23 amLODIPine [Norvasc] 10 mg PO DAILY 12/07/23 oxyCODONE [Roxicodone] 10 mg PO Q4-6H PRN 12/07/23 Hydrochlorothiazide 12.5 mg PO DAILY 11/28/12 Omeprazole [PriLOSEC] 20 mg PO DAILY 11/28/12 Fenofibrate 160 mg PO DAILY 01/19/14 Sertraline [Zoloft] 50 mg PO DAILY 08/06/23 Aspirin [Aspirin EC] 81 mg PO DAILY 12/07/23 Calcium 26/Vit D3/Magnesium 15 [[id number] Complx 167Mg Cp] 1 each PO DAILY 12/07/23 Cholecalciferol [Vitamin D3] 5,000 unit PO DAILY 12/07/23 Ezetimibe [Zetia] 10 mg PO QD 12/07/23 Rosuvastatin Calcium 2.5 mg PO QPM 12/07/23 Sulindac 150 mg PO BIDWM 12/07/23 Telmisartan 80 mg PO DAILY 12/07/23 amLODIPine [Norvasc] 10 mg PO DAILY 12/07/23 oxyCODONE [Roxicodone] 10 mg PO Q4-6H PRN 12/07/23 Allergies/Adverse Reactions: Allergies Allergy/AdvReac Type Severity Reaction Status Date / Time No Known Drug Allergies Allergy Verified 08/06/23 21:18 Anes History & Medical History - Medical History Cardiovascular: reports: Hypertension, High cholesterol, Other Pulmonary: reports: None, Sleep apnea, CPAP use Gastrointestinal: reports: GERD, Ulcers, Colon polyps Urinary: reports: None Neuro: reports: None Musculoskeletal: reports: Osteoarthritis, Osteoporosis, Chronic back pain Endocrine/Autoimmune: reports: None Blood Disorders: reports: None Skin: reports: None Smoking Status: Never smoker - Surgical History General: reports: EGD, Appendectomy, Colonoscopy Gynecologic: reports: Hysterectomy Orthopedic: reports: Spine surgery Exam General: Alert, Oriented x3, Cooperative Dental: WNL, Dentures full Upper Mouth Openin Fingerbreadth Mallampati classification: III Thyromental Distance: 4-6 cm Plan Anesthesia Type: General, Spinal Consent for Procedure(s) Verified and Reviewed: Yes Code Status: Attempt Resuscitation ASA classification: 3-Severe systemic disease Is this case an emergency?: No
[2023-12-15] MEDS ORDERED: BUPIVACAINE 0.5%-EPI 1:200000 PF 10 ML VIAL ONE (07:22)
[2023-12-15 07:23] LABS: BASOPHILS % (AUTO) 0.5 %; EOSINOPHILS # (AUTO) 0.1 10^3/uL (0.0-0.7); EOSINOPHILS % (AUTO) 3.4 %; HCT - HEMATOCRIT 39.6 % (37.0-47.0); HGB - HEMOGLOBIN 12.9 g/dL (12.0-16.0); LYMPHOCYTES # (AUTO) 0.9 10^3/uL (1.5-3.5); LYMPHOCYTES % (AUTO) 22.9 %; MEAN CORPUSCULAR HEMOGLOBIN 31.9 pg (27.0-31.0); MEAN CORPUSCULAR HGB CONC 32.6 g/dL (32.0-36.0); MONOCYTES # (AUTO) 0.3 10^3/uL (0.0-1.0); MONOCYTES % (AUTO) 7.6 %; NEUTROPHILS # (AUTO) 2.5 10^3/uL (1.5-6.6); NEUTROPHILS % (AUTO) 65.3 %; RED BLOOD COUNT 4.04 10^6/uL (4.20-5.40); RED CELL DISTRIBUTION WIDTH 12.6 % (12.0-15.0); WHITE BLOOD COUNT 3.8 x10^3/uL (4.8-10.8)
[2023-12-15 07:34] LABS: SLIDE REVIEW? Indicated
[2023-12-15 07:54] LABS: PLATELET ESTIMATE, MANUAL NORMAL (130-450,000) (NORMAL); PLATELET MORPHOLOGY NORMAL APPEARANCE (NORMAL); PLT - PLATELET COUNT 247 10^3/uL (130-450); RBC MORPHOLOGY (MULTIPLE) NORMAL APPEARANCE (NORMAL)
[2023-12-15] MEDS ORDERED: ePHEDrine 50 MG/ML VIAL IVP ONE (08:07)
[2023-12-15] MEDS ORDERED: ACETAMINOPHEN 1,000 MG/100 ML 1,000 MG/100 ML BAG IV ONE (08:11)
[2023-12-15] MEDS: BUPIVACAINE 0.5%-EPI 1:200000 PF 30 ML VIAL SUBQ ONE ×2 (08:43)
--- NOTE | 2023-12-15 09:10 | OPERATIVE REPORT ---
Operative Report - General Procedure Date: 12/15/23 Planned Procedure: Placement of distal femoral locking screws Pre-Op Diagnosis: S/p IM nailing of left mid-shaft femoral shaft fracture Procedure Performed: Placement of two distal femoral locking screws Post Op Diagnosis: Same - Procedure Note Primary Surgeon: Fatoumata Valle MD Secondary Surgeon: JOHN PAUL Brown Anesthesia Provider: Jaxon Dye CRNA Anesthesia Technique: General ET tube Estimated Blood Loss (mL): 20 Complications: None - Other Other Information/Narrative: Description of procedure: Patient was taken to the operating room on the morning of her surgery where she is placed into a general anesthetic in the supine position. She was then positioned supine on the [place] fracture table with the left lower extremity and axial traction. The right lower extremity was with the hip flexed and widely abducted and held with the well-leg woodruff. Fluoroscopic machine was then positioned to allow us to get both the AP and lateral projection at the distal tip of her intramedullary nail within her femoral canal. We then prepped the lateral aspect of her distal thigh in usual fashion for our procedure. With C arm guidance in the lateral position we identified the location of our most distal oblique hole in our IM nail. Skin incision was then made directly overlying this hole. We then placed our 4.0 mm test pilot drill overlying our oval hole in our nail. We then proceeded to drill the medial and lateral femoral cortex with the drill passing through the oval hole in our nail up. We then switched into the AP view and estimated the length of our distal locking screw to be 45 mm in length. We then removed our drill and replaced it with the selected distal femoral screw. This was a screwed into place. Fluoroscopic views showed that we had bicortical purchase of the screw and that it passed through the nail and the distal oval hole in our nail. In a likewise fashion we then proceeded to insert the second distal locking screw. This 1 measured 40 mm in length. After the insertion of the 2 screws we then obtained final x-rays in the AP and lateral projection of the distal tip of our nail that demonstrated bicortical purchase of our 2 distal femoral locking screws and that the past through the 2 holes in the distal tip of our nail. Finally we obtained AP and lateral projections of the midshaft area demonstrating callus formation at the fracture site though there is still was visible appearance of a fracture line. We then irrigated the wounds out thoroughly with saline. Closed the wounds with skin arden. Dressed the wound. Patient transferred off the fracture table and taken to recovery room in satisfactory condition. Estimated blood loss: 20 cc Complications: None Plan: Patient may go weightbearing as tolerated in his extremity. Will follow- up in orthopedic clinic in about 3 weeks time for skin staple removal and check to see how she is then clinically.
[2023-12-15] MEDS ORDERED: HYDROcod/ACETAM 5/325 MG TABLET PO PRN (09:16)
[2023-12-15] MEDS ORDERED: ONDANSETRON 4 MG/2 ML VIAL IVP PRN ×2 (09:16→09:17)
[2023-12-15] MEDS ORDERED: HYDROcod/ACETAM 10 MG/325 MG TABLET PO PRN (09:16)
[2023-12-15] MEDS ORDERED: oxyCODONE 5 MG TABLET PO PRN (09:16)
[2023-12-15] MEDS ORDERED: KETOROLAC 15 MG/ML VIAL IVP STA (09:16)
[2023-12-15] MEDS ORDERED: NALOXONE 0.4 MG/ML VIAL IVP PRN (09:17)
[2023-12-15] MEDS ORDERED: HYDROmorphone 0.5 MG/0.5 ML SYRINGE IVP PRN (09:17)
[2023-12-15] MEDS ORDERED: ePHEDrine 50 MG/ML VIAL IVP PRN (09:17)
[2023-12-15] MEDS ORDERED: MORPHINE 2 MG/ML CARPUJECT IVP PRN (09:17)
[2023-12-15] MEDS ORDERED: METOCLOPRAMIDE 10 MG/2 ML VIAL IVP PRN (09:17)
[2023-12-15] MEDS ORDERED: ATROPINE ABBOJECT 1 MG/10 ML SYRINGE IVP PRN (09:17)
[2023-12-15] MEDS ORDERED: fentaNYL 100 MCG/2 ML VIAL IVP PRN (09:17)
[2023-12-15] MEDS ORDERED: LACTATED RINGERS 1,000 ML IV SCH (10:00)
--- NOTE | 2023-12-15 10:13 | ANESTHESIA POST OP EVALUATION ---
Anesthesia Post Eval - Post Anesthesia Eval Vitals: Last Vital Signs Temp 36.4 C L 12/15/23 10:01 Pulse 72 12/15/23 10:01 Resp 16 12/15/23 10:01 BP 140/52 H 12/15/23 10:01 Pulse Ox 96 12/15/23 10:01 O2 Flow Rate CV Function Including HR & BP: Stable Pain Control: Satisfactory Nausea & Vomiting: Negative Mental Status: Baseline Respiratory Status: Airway Patent Hydration Status: Satisfactory Anesthesia Complications: None
[2023-12-15 10:15] VITALS: BP 140/52; O2SAT 96
--- NOTE | 2023-12-15 18:05 | XRAY Report ---
PROCEDURE: OR C-Arm Procedure INDICATIONS: INSERT DISTAL SCREWS IN LEFT IM NAIL FLUORO TIME: 0.6 MIN TECHNIQUE: Intraoperative images were presented for evaluation of the femur COMPARISON: X-ray femur 11/18/2023, 10/17/2023 FINDINGS: Intraoperative images demonstrating femoral reji and screw fixation. Hardware is intact. Healing femor al fracture is visualized. IMPRESSION: Healing femoral diaphyseal fracture with fixation. Reviewed by: Julia Pitts MD on 12/15/2023 6:03 PM PDT Approved by: Julia Pitts MD on 12/15/2023 6:03 PM PDT Station ID: [id number]
== END 2023-12-15 06:11 | disposition home or self-care (01) ==
LOC: SDS 06:10
PROVIDERS: ATTEND Orthopaedic Surgery
PROC: 0QWC04Z Revision of Internal Fixation Device in Left Lower Femur, Open Approach (ICD-10-PCS; principal; 2023-12-15 07:30)
DX: T84.125A Displacement of internal fixation device of left femur, initial encounter (principal); M79.662 Pain in left lower leg; G47.30 Sleep apnea, unspecified; I10 Essential (primary) hypertension
CPT/HCPCS: 27599; 36415; 85025; C1713; J0131; J7120

== ENCOUNTER 2024-01-17 08:01 | Outpatient (CLI) | payer MEDICARE, OTHER ==
--- NOTE | 2024-01-17 14:59 | XRAY Report ---
PROCEDURE: Femur 2+V LT (Weight Bearing) INDICATIONS: UNSPECIFIED FRACTURE OF SHAFT OF LEFT FEMUR TECHNIQUE: 2 views of the left femur. COMPARISON: Left femur radiographs 11/18/2023. FINDINGS: Postsurgical changes are seen from femoral shaft fracture fixation with an intramedullary nail. Lucen cy again seen surrounding the distal portion of the intramedullary nail. Distal locking screws are ne w. Osseous alignment is unchanged. There may be mild partial osseous bridging posteriorly portions of the fracture line are still visualized. IMPRESSION: Postsurgical changes from femoral shaft fracture fixation with an intramedullary nail. Interval place ment of distal locking screws. Osseous alignment appears unchanged. There is mild progressive healing at the fracture site with continued visualization of portions of the fracture line. Reviewed by: Jaiden Dawn MD on 01/17/2024 2:57 PM PDT Approved by: Jaiden Dawn MD on 01/17/2024 2:57 PM PDT Station ID: [id number]
== END 2024-01-17 08:02 | disposition home or self-care (01) ==
LOC: DI 08:01
PROVIDERS: ATTEND Orthopaedic Surgery
DX: S72.302D Unspecified fracture of shaft of left femur, subsequent encounter for closed fracture with routine healing (principal)

== ENCOUNTER 2024-02-14 09:29 | Outpatient (CLI) | payer MEDICARE, OTHER ==
--- NOTE | 2024-02-14 13:42 | CT Report ---
PROCEDURE: Lower Extremity LT WO INDICATIONS: L FEMUR FX TECHNIQUE: Noncontrast 3-mm axial sections acquired from the distal tibial shaft to the talar dome, with coronal and sagittal reformats. For radiation dose reduction, the following was used: automated exposure c ontrol, adjustment of mA and/or kV according to patient size. COMPARISON: Left femur radiographs 01/17/2024 and 11/18/2023 FINDINGS: Image quality: Excellent. Bones: Postsurgical changes again seen from fixation of a femoral shaft fracture with intramedullary nail. 2 distal locking screws are present. There is lucency surrounding the distal portion of the na il and the distal locking screws suspicious for loosening. No osseous bridging is seen across the fra cture line. There is surrounding sclerosis and periosteal new bone formation. There is suspected part ial osseous bridging between the small comminuted medial fracture fragment and the distal shaft compo nent. No additional osseous fracture. Mild degenerative changes are seen in the left hip and left knee. Soft tissues: No significant soft tissue edema or hematoma. No hip or knee effusion. The thigh muscu lature is age-appropriate in bulk. Included pelvic soft tissues demonstrate no acute abnormality. Sta tus post hysterectomy. IMPRESSION: Postsurgical changes again seen from femoral shaft fracture fixation with an intramedullary nail and distal locking screws. No osseous bridging is seen across the fracture site. Lucencies surrounding th e intramedullary nail and distal locking screws within the distal femoral component are suspicious fo r loosening. Reviewed by: Jaiden Dawn MD on 02/14/2024 12:41 PM [facility]WOT Approved by: Jaiden Dawn MD on 02/14/2024 12:41 PM HIWOT Station ID: [id number]
== END 2024-02-14 09:30 | disposition home or self-care (01) ==
LOC: DI 09:29
PROVIDERS: ATTEND Orthopaedic Surgery
DX: S72.92XD Unspecified fracture of left femur, subsequent encounter for closed fracture with routine healing (principal); M25.562 Pain in left knee
CPT/HCPCS: 36415; 85025; 85651; 86140

== ENCOUNTER 2024-02-14 09:58 | Outpatient (CLI) | payer MEDICARE, OTHER ==
[2024-02-14 10:15] LABS: BASOPHILS % (AUTO) 0.5 %; EOSINOPHILS # (AUTO) 0.1 10^3/uL (0.0-0.7); EOSINOPHILS % (AUTO) 3.2 %; HCT - HEMATOCRIT 42.7 % (37.0-47.0); HGB - HEMOGLOBIN 13.7 g/dL (12.0-16.0); LYMPHOCYTES % (AUTO) 23.7 %; MEAN CORPUSCULAR HEMOGLOBIN 31.4 pg (27.0-31.0); MEAN CORPUSCULAR HGB CONC 32.1 g/dL (32.0-36.0); MEAN CORPUSCULAR VOLUME 97.7 fL (81.0-99.0); MEAN PLATELET VOLUME 9.9 fL (7.9-10.8); MONOCYTES # (AUTO) 0.3 10^3/uL (0.0-1.0); NEUTROPHILS # (AUTO) 2.9 10^3/uL (1.5-6.6); NEUTROPHILS % (AUTO) 66.6 %; PLT - PLATELET COUNT 289 10^3/uL (130-450); RED BLOOD COUNT 4.37 10^6/uL (4.20-5.40); WHITE BLOOD COUNT 4.4 x10^3/uL (4.8-10.8)
== END 2024-02-14 09:59 | disposition home or self-care (01) ==
LOC: LAB 09:58
PROVIDERS: ATTEND Orthopaedic Surgery
DX: M25.562 Pain in left knee (principal)
CPT/HCPCS: 36415; 85025; 85651; 86140